=== PATIENT | male | born 1985 | race Caucasian/White ===

== ENCOUNTER 2023-03-17 19:31 | Emergency (ER) | payer MEDICAID ==
[~2023-03-17] VITALS: Ht 175.3 cm; Wt 95.3 kg
[~2023-03-17 19:31] MED LIST: CEPH-588 PO; IBUP-974 PO
[2023-03-17 20:04] VITALS: BP 123/68; PULSE 114; RESP 20; TEMP 98; O2SAT 98
[2023-03-17] MEDS ORDERED: HYDROcodone/APAP 5/325 MG 1 TAB TAB PO ONE (21:35)
[2023-03-17] MEDS ORDERED: ACET-8905 PO (23:27)
[2023-03-17] MEDS ORDERED: IBUP-2213 PO (23:27)
== END 2023-03-18 00:02 | disposition home or self-care (01) ==
LOC: MED 19:31
DX: S82.491A Other fracture of shaft of right fibula, initial encounter for closed fracture (principal); Z79.899 Other long term (current) drug therapy; X58.XXXA Exposure to other specified factors, initial encounter; Y93.89 Activity, other specified; Y92.89 Other specified places as the place of occurrence of the external cause; Y99.8 Other external cause status
CPT/HCPCS: 29515; 73610; 73630; 99284